=== PATIENT | female | born 1980 | race Caucasian/White ===

== ENCOUNTER 2018-03-29 22:49 | Emergency (ER) | payer OTHER, MEDICAID ==
[~2018-03-29] VITALS: Ht 167.6 cm; Wt 77.1 kg
--- OUTSIDE RECORDS SUMMARY | 2018-03-29 22:52 | XMS REPORT | Clinical Summary ---
Author Author [facility] Organization [facility] Address Unknown Phone Unavailable Care Team Providers Care Foreclosure Paralegal Name Role Phone Asked, No Pcp PCP Unavailable Allergies No Known Allergies Medications End Date Status Medication Sig Dispensed Refills Start Date 02/26/2018 nitrofurantoin, Take 1 14 capsule 0 macrocrystal-monohydrate, capsule (100 8 (MACROBID) 100 MG capsule mg total) by mouth 2 (two) times a day for 7 days. Active Problems Not on file Encounters Care Team Description Date Type Specialty Alem Bolaños PA-C Islam, Nadim Bin, MD Acute UTI (Primary Dx); Concern about STD in female without diagnosis 02/19/2018 Emergency Emergency Medicine after 03/28/2017 Social History Date Tobacco Use Types Packs/Day Years Used Current Every Day Smoker Cigarettes 1 Smokeless Tobacco: Never Used Tobacco Cessation: Ready to Quit: No; Counseling Given: Yes Alcohol Use Drinks/Week oz/Week Comments No Sex Assigned at Date Recorded Not on file Industry Job Start Date Occupation Not on file Not on file Not on file Travel End Travel History Travel Start No recent travel history available. Last Filed Vital Signs Time Taken Vital Sign Reading 02/19/2018 5:30 PM CDT Blood Pressure 152/84 02/19/2018 5:30 PM CDT Pulse 83 02/19/2018 4:27 PM CDT Temperature 36.7 C (98 F) 02/19/2018 5:30 PM CDT Respiratory Rate 17 02/19/2018 5:30 PM CDT Oxygen Saturation 97% - Inhaled Oxygen - Concentration 02/19/2018 4:29 PM CDT Weight 73.5 kg (162 lb) 02/19/2018 4:29 PM CDT Height 172.7 cm (5' 8") 02/19/2018 4:29 PM CDT Body Mass Index 24.63 Plan of Treatment Not on file Procedures Comments Procedure Name Priority Date/Time Associated Diagnosis CHLAMYDIA BY PROBETEC Routine 02/19/2018 5:32 PM CDT WET PREP Routine 02/19/2018 5:32 PM CDT GC BY PROBETEC Routine 02/19/2018 5:32 PM CDT HCG QUALITATIVE, URINE Routine 02/19/2018 SCREEN 4:52 PM CDT URINALYSIS SCREEN AND Routine 02/19/2018 MICROSCOPY, WITH REFLEX 4:52 PM CDT TO CULTURE URINE CULTURE Routine 02/19/2018 4:52 PM CDT GRAM STAIN Routine 02/19/2018 4:52 PM CDT after 03/28/2017 Results * GC By [employer] (02/19/2018 5:32 PM CDT) GC, [employer] Negative for Neisseria [facility] OF gonorrhoeae. PATHOLOGY AND Comment: GENOMIC MEDICINE Specimen Information Specimen Source: Cervical Specimen Site: Not otherwise specified Specimen Cervical - Not otherwise specified Performing Organization Address City/[facility] Phone Number [facility] OF [address] [place] [address] PATHOLOGY AND GENOMIC MEDICINE * Chlamydia by [employer] (02/19/2018 5:32 PM CDT) Chlamydia, [employer] Negative for Chlamydia [facility] OF trachomatis. PATHOLOGY AND Comment: GENOMIC MEDICINE Specimen Information Specimen Source: Cervical Specimen Site: Not otherwise specified Specimen Cervical - Not otherwise specified Performing Organization Address City/State/Zipcode Phone Number [facility] OF [address] [place] [address] PATHOLOGY AND GENOMIC MEDICINE * Wet prep (02/19/2018 5:32 PM CDT) Wet prep result No WBC's seen [facility] OF No Clue cells seen PATHOLOGY AND No Trichomonas vaginalis or GENOMIC MEDICINE budding yeast seen Comment: Specimen Information Specimen Source: Vaginal Specimen Site: Not otherwise specified Specimen Vaginal - Not otherwise specified Performing Organization Address City/State/Zipcode Phone Number [facility] [place] [address] [place] [address] PATHOLOGY AND [facility] * Urinalysis screen and microscopy, with reflex to culture (02/19/2018 4:52 PM CDT) Specimen site Clean catch [facility] DEPARTMENT OF PATHOLOGY AND GENOMIC MEDICINE Color, UA Ivana [facility] DEPARTMENT OF PATHOLOGY AND GENOMIC MEDICINE Appearance, UA Cloudy [facility] DEPARTMENT OF PATHOLOGY AND GENOMIC MEDICINE Specific gravity, UA 1.027 1.001 - 1.035 [facility] DEPARTMENT OF PATHOLOGY AND GENOMIC MEDICINE pH, UA 5.0 5.0 - 8.5 [facility] DEPARTMENT OF PATHOLOGY AND GENOMIC MEDICINE Protein, UA 2+ (A) Negative [facility] DEPARTMENT OF PATHOLOGY AND GENOMIC MEDICINE Glucose, UA Negative Negative [facility] DEPARTMENT OF PATHOLOGY AND GENOMIC MEDICINE Ketones, UA Negative Negative [facility] DEPARTMENT OF PATHOLOGY AND GENOMIC MEDICINE Bilirubin, UA 1+ Negative [facility] DEPARTMENT OF PATHOLOGY AND GENOMIC MEDICINE Blood, UA Negative Negative [facility] DEPARTMENT OF PATHOLOGY AND GENOMIC MEDICINE Nitrite, UA Positive (A) Negative [facility] DEPARTMENT OF PATHOLOGY AND GENOMIC MEDICINE Urobilinogen, UA 4.0 (A) <2.0 [facility] DEPARTMENT OF PATHOLOGY AND GENOMIC MEDICINE Leukocyte esterase, UA Moderate (A) Negative [facility] DEPARTMENT OF PATHOLOGY AND GENOMIC MEDICINE Epithelial cells, UA Many /HPF [facility] DEPARTMENT OF PATHOLOGY AND GENOMIC MEDICINE Round epithelial cells, Many 0 - 1 /HPF [facility] DEPARTMENT [facility] PATHOLOGY AND GENOMIC MEDICINE WBC, UA 61-80 (H) 0 - 4 /HPF [facility] DEPARTMENT OF PATHOLOGY AND GENOMIC MEDICINE RBC, UA 21-40 (H) 0 - 5 /HPF [facility] DEPARTMENT OF PATHOLOGY AND GENOMIC MEDICINE Bacteria, UA Many (A) None seen [facility] DEPARTMENT OF PATHOLOGY AND GENOMIC MEDICINE Yeast, UA None seen [facility] DEPARTMENT OF PATHOLOGY AND GENOMIC MEDICINE Yeast with pseudohyphae, None seen [facility] PATHOLOGY AND GENOMIC MEDICINE Calcium oxalate crystals, Few [facility] PATHOLOGY AND GENOMIC MEDICINE Specimen Urine Performing Organization Address City/State/Zipcode Phone Number [facility] [address] [place] [address] PATHOLOGY [facility] GENOMIC MEDICINE * hCG qualitative, urine screen (02/19/2018 4:52 PM CDT) hCG qualitative, urine Negative Negative [facility] DEPARTMENT OF Comment: PATHOLOGY AND The manufacturers stated GENOMIC MEDICINE sensitivity of HcG test for serum is >/=10 mIU/ml and urine is >/=20mIU/ml. Specimen Urine Performing Organization Address City/State/Zipcode [place] [facility] [place] [address] [place] [address] PATHOLOGY AND GENOMIC MEDICINE * Gram stain (02/19/2018 4:52 PM CDT) Gram stain result Many WBC's [facility] OF Many Gram positive cocci in PATHOLOGY AND pairs GENOMIC MEDICINE Many Gram negative rods Comment: Specimen Information Specimen Source: Urine Specimen Site: Clean catch Specimen Urine Performing Organization Address City/State/Zipcode Phone Number [facility] DEPARTMENT OF [address] [place] [address] PATHOLOGY AND GENOMIC MEDICINE * Urine culture (02/19/2018 4:52 PM CDT) Urine culture isolate Escherichia coli [facility] OF >10-5 cfu/ml PATHOLOGY AND (A) GENOMIC MEDICINE Comment: Specimen Information Specimen Source: Urine Specimen Site: Clean catch Urine culture isolate Streptococcus group B [facility]PART[facility] OF 10-3 cfu/ml PATHOLOGY AND (A) GENOMIC MEDICINE Urine culture isolate Gram positive boom [facility] OF 10-2 cfu/ml PATHOLOGY AND (A) GENOMIC MEDICINE Specimen Urine Antibiotic Method Susceptibility Organism Ampicillin MAURI >16 mcg/mL: Resistant Escherichia coli Amoxicillin/Clavulanate MAURI 4/2 mcg/mL: Susceptible Escherichia coli Amikacin MAURI <=4 mcg/mL: Susceptible Escherichia coli Aztreonam MAURI <=1 mcg/mL: Susceptible Escherichia coli Ceftazidime MAURI <=0.5 mcg/mL: Susceptible Escherichia coli Ciprofloxacin MAURI <=0.5 mcg/mL: Susceptible Escherichia coli Ceftriaxone MAURI <=0.5 mcg/mL: Susceptible Escherichia coli Cefuroxime Sodium MAURI <=4 mcg/mL: Susceptible Escherichia coli Cefazolin MAURI 2 mcg/mL: Susceptible Escherichia coli Cefepime MAURI <=0.5 mcg/mL: Susceptible Escherichia coli Nitrofurantoin MAURI <=16 mcg/mL: Susceptible Escherichia coli Cefoxitin MAURI <=4 mcg/mL: Susceptible Escherichia coli Gentamicin MAURI <=1 mcg/mL: Susceptible Escherichia coli Imipenem MAURI <=0.25 mcg/mL: Susceptible Escherichia coli Levofloxacin MARUI <=1 mcg/mL: Susceptible Escherichia coli Meropenem MAURI <=0.125 mcg/mL: Susceptible Escherichia coli Tobramycin MAURI 1 mcg/mL: Susceptible Escherichia coli Ampicillin/Sulbactam MAURI 16/8 mcg/mL: Resistant Escherichia coli Trimethoprim/Sulfamethoxazole MAURI <=0.5/9.5 mcg/mL: Susceptible Escherichia coli Tetracycline MAURI <=1 mcg/mL: Susceptible Escherichia coli Piperacillin/Tazobactam MAURI <=2/4 mcg/mL: Susceptible Escherichia coli Ertapenem MAURI <=0.125 mcg/mL: Susceptible Escherichia coli Tigecycline MAURI <=0.5 mcg/mL: Susceptible Escherichia coli Performing Organization Address City/State/Zipcode Phone Number [facility] DEPARTMENT OF [address] [place] [address] PATHOLOGY AND GENOMIC MEDICINE after 03/28/2017 Advance Directives Patient has advance care planning documents on file. For more information, radha reyes contact: Candido Saenz [address] [place] [address]
[2018-03-29 23:59] VITALS: BP 143/84
== END 2018-03-30 | disposition home or self-care (01) ==
LOC: ER 22:49
DX: H00.033 Abscess of eyelid right eye, unspecified eyelid (principal); S00.261A Insect bite (nonvenomous) of right eyelid and periocular area, initial encounter
CPT/HCPCS: 99282